=== PATIENT | male | born 1980 | race Caucasian/White ===

== ENCOUNTER 2022-03-13 08:58 | Emergency (ER) | payer MEDICAID ==
[~2022-03-13] VITALS: Ht 180.3 cm; Wt 95.5 kg
[~2022-03-13 08:58] MED LIST: NO HOME MEDS
[2022-03-13 09:18] VITALS: BP 111/75
[2022-03-13] MEDS ORDERED: CEPH-585 PO (09:30)
[2022-03-13] MEDS ORDERED: BACI1PAC7 TOP (09:30)
== END 2022-03-13 10:10 | disposition home or self-care (01) ==
LOC: ER 08:58
DX: M79.675 Pain in left toe(s) (principal); F17.200 Nicotine dependence, unspecified, uncomplicated; Z72.89 Other problems related to lifestyle; Z59.00 Homelessness unspecified; Z56.0 Unemployment, unspecified
CPT/HCPCS: 99283

== ENCOUNTER 2023-04-14 15:49 | Emergency (ER) | payer MEDICAID ==
[~2023-04-14] VITALS: Ht 180.3 cm; Wt 98.6 kg
[2023-04-14] MEDS ORDERED: ketorolac trometh. 30mg/ml inj. IM ONE (18:50)
[2023-04-14] MEDS ORDERED: HYDROcodone/acetaminophen 5mg/325mg tablet PO ONE (18:50)
[2023-04-14] MEDS ORDERED: orphenadrine citrate 60mg/2ml inj. IM ONE (18:50)
[2023-04-14] MEDS ORDERED: CYCL-1 PO (18:53)
[2023-04-14 18:58] VITALS: BP 150/100; PULSE 94; TEMP 98.6; O2SAT 98
[2023-04-14 19:10] VITALS: RESP 18
== END 2023-04-14 19:22 | disposition home or self-care (01) ==
LOC: ER 15:49
DX: S39.012A Strain of muscle, fascia and tendon of lower back, initial encounter (principal); Z59.00 Homelessness unspecified; Z56.0 Unemployment, unspecified; X58.XXXA Exposure to other specified factors, initial encounter; Y93.89 Activity, other specified; Y92.89 Other specified places as the place of occurrence of the external cause; Y99.8 Other external cause status
CPT/HCPCS: 96372; 99284; J1885; J2360